=== PATIENT | male | born 1980 | race African-American/Black ===

== ENCOUNTER 2020-12-12 21:52 | Emergency (ER) | payer OTHER ==
[~2020-12-12] VITALS: Ht 190.5 cm; Wt 83.0 kg
[2020-12-12 22:12] VITALS: BP 123/83
[2020-12-12] MEDS ORDERED: NAPROXEN 250MG TABLET PO ONE (22:45)
[2020-12-12] MEDS ORDERED: NAPR-681 PO (23:56)
== END 2020-12-13 00:23 | disposition home or self-care (01) ==
LOC: ER 21:52
DX: M79.18 Myalgia, other site (principal); F10.129 Alcohol abuse with intoxication, unspecified; Y90.8 Blood alcohol level of 240 mg/100 ml or more; V49.49XA Driver injured in collision with other motor vehicles in traffic accident, initial encounter; Y93.89 Activity, other specified; Y92.89 Other specified places as the place of occurrence of the external cause; Y99.8 Other external cause status
CPT/HCPCS: 36415; 80320; 93005; 99284; G0480